=== PATIENT | male | born 1990 | race Caucasian/White ===

== ENCOUNTER 2017-12-06 16:56 | Observation (INO) | payer MEDICAID, SELFPAY ==
[2017-12-06 16:57] VITALS: BP 144/80; PULSE 104; RESP 15; TEMP 36.6; O2SAT 99; BMI 34.0
--- NOTE | 2017-12-06 17:11 | ED.VISSUMM ---
- ER Visit Summary Date of Service: 12/06/17 Chief Complaint: Withdrawal History of Present Illness: The patient is a 27 M who was reportedly at [facility] for meth addiction. His last use was yesterday morning and he did treatment yesterday. Patient states he started to get shaky last night. Today's complaining of body aches, nausea, and feels very shaky. Patient states that he has not been given any medication for withdrawal. Nursing staff states the rehab center told him he needed help getting through this stage of the withdrawal and they were taken back at the facility. Physical Examination: Vital signs significant for heart rate of 104, otherwise unremarkable. Patient is lying in bed. He is a nervous tremor to his arms and hands which is voluntary. Heart is regular rate and rhythm with a heart rate of 96 at the time of my exam. Lung sounds are clear. Abdomen is soft and nontender. Hypoactive bowel sounds are noted throughout. Skin examination reveals no rash. Test Results: CBC and chemistry studies are unremarkable. LFTs are normal. Emergency Department Course and Treatment: Patient was given IV fluids, Toradol, Zofran, and Ativan. On repeat evaluation he is sleeping comfortably. We are now notified that the patient is at pathway through [facility], and they do not have the ability to medicate patients through withdrawal. They state that they will not take the patient back until the Ativan that we gave him here is out of his system. Mother did reportedly call in and talk with the charge nurse stating that patient went through severe kidney failure and required being on a vent when he went through withdrawal a few months ago at [facility]. She did provide the discharge summary from that visit. On my review it appears the patient swallowed a bag full of meth when he was pulled over by police. This ruptured and patient had an acute adrenergic response from the overdose. This required him to be intubated and led to his further symptoms. At this time patient's labs are normal. I spoke with the hospitalist and patient will be admitted for further care. Treatment Plan: [] Disposition: Admit Impression: Withdrawal from meth This note was generated with [employer] dictation software. It may contain incorrect words, spelling, and punctuation that were not noted in review of the chart prior to signing ED Disposition - Plan for ED Patient: Disposition: Acute Care Hospital [facility] Chief Complaint: Substance Abuse
[2017-12-06] MEDS: 0.9% Normal Saline 1,000 ML 1000 ML IV (17:17)
[2017-12-06] MEDS: LORazepam 2 MG/ML Syringe 1 MG IV (17:17)
[2017-12-06] MEDS: Ketorolac 30 MG/ML Syringe IV (17:17)
[2017-12-06] MEDS: Ondansetron 4 MG/2 ML Vial IV (17:17)
[2017-12-06 17:21] LABS: Absolute Lymphocyte Count 2.11 X10^3/ul (0.83-4.51); Absolute Neutrophil Count 5.1 X10^3/uL (2.0-7.7); Basophil# 0.06 X10^3/uL; Basophil% 0.7 % (0-1); Eosinophil# 0.23 X10^3/uL; Eosinophils% 2.8 % (0-5); Hemoglobin 15.7 g/dl (13.0-16.5); Lymphocyte # 2.11 X10^3/ul (4.0); Mean Corp Hgb Conc 34.1 g/gl (32-36); Mean Corpuscular Hgb 28.5 pg (27.0-32.0); Mean Corpuscular Volume 83.5 fL (80-94); Mean Platelet Vol. 9.6 fl (6.2-12.0); Monocyte# 0.62 X10^3/uL; Monocyte% 7.7 % (0-10); Neutrophil # 5.06 X10^3/uL (2.7-7.7); Neutrophil % 62.6 % (47-70); Platelet Count 271 K/mm3 (150-450); RBC Distribution Width CV 14.7 % (11.6-14.6); RBC Distribution Width SD 44.5 fl (35.1-43.9); Red Blood Count 5.51 M/mm3 (4.6-6.2); White Blood Count 8.1 K/mm3 (4.4-11.0)
[2017-12-06 17:27] LABS: POSITIVE COUNT NO; POSITIVE DIFFERENTIAL NO; POSITIVE MORPHOLOGY NO
[2017-12-06 17:29] LABS: Anion Gap 5 (5-15); BUN 14 mg/dL (7-18); BUN/Creat Ratio 16.1 RATIO (10-20); Chloride 105 mmol/L (98-107); Creatinine, Serum 0.87 mg/dL (0.70-1.30); EST Glomerular Filtration Rate 112 mL/min (>60); Est Glom Filt Rate - Afr Amer 136 mL/min (>60); Estimated Creatinine Clearance 148.29 ml/min; Glucose 97 mg/dL (74-106); Sodium Level 139 mmol/L (136-145)
[2017-12-06 18:24] VITALS: BP 147/80; PULSE 85; RESP 18; O2SAT 96
[2017-12-06 18:42] LABS: Bacteria 0 SEEN /hpf (None Seen); Red Blood Cells-Urine 0 SEEN /hpf (0-5); Squamous Epithelial Cells - UA 0 SEEN /hpf (0-5)
[2017-12-06 19:09] LABS: Color, Urine Yellow (Yellow); Glucose, Dipstick Normal (Normal); Ketone-Dipstick Negative (Negative); Leukocyte Esterase-Dipstick Negative /ul (Negative); Nitrite-Dipstick Negative (Negative); Occult Blood-Urine Negative /ul (Negative); Protein-Dipstick Negative (Negative); Specific Gravity, Urine 1.025 (1.002-1.030); Urine Bilirubin Dipstick Negative (Negative); Urine Clarity Clear (Clear); Urine Urobilinogen Normal (Normal)
[2017-12-06 19:12] LABS: AST(SGOT) 14 U/L (15-37); Alanine Aminotransfer ALT/SGPT 24 U/L (16-61); Albumin, Serum 3.7 g/dL (3.2-5.0); Alkaline Phosphatase 60 U/L (45-117); Bilirubin, Direct 0.07 mg/dL (0.00-0.30); Globulin 3.6 g/dL (2.2-4.2); Protein, Total 7.3 g/dL (6.4-8.2)
[2017-12-06 19:14] LABS: Amphetamine Urine VISTA POSITIVE (<1000 ng/mL); Barbiturate Urine VISTA NEGATIVE (< 200 ng/mL); Benzodiazepine Urine VISTA NEGATIVE (< 200 ng/mL); Cocaine Urine VISTA NEGATIVE (< 300 ng/mL); Ecstacy Urine VISTA POSITIVE (< 500 ng/mL); Methadone Urine VISTA NEGATIVE (< 300 ng/mL); PCP Urine VISTA NEGATIVE (< 25 ng/mL); THC Urine VISTA NEGATIVE (< 50 ng/mL); Vista UDS pH Range 5
[2017-12-06 19:46] LABS: Hyaline Cast 0-5 SEEN /lpf (0-5)
[2017-12-06 19:47] LABS: Mucous, Urine 2+ /hpf (<or=2+)
[2017-12-06 19:48] VITALS: BP 147/80; PULSE 77; RESP 16; O2SAT 96
[2017-12-06 19:48] LABS: White Blood Cells 0-5 SEEN /hpf (0-5)
[2017-12-06 19:50] VITALS: BP 147/80; PULSE 77; RESP 16; O2SAT 96
--- NOTE | 2017-12-06 19:51 | PCM.HP.STD ---
Problem List (1) Methamphetamine toxicity Status: Acute (2) History of acute kidney injury Status: Chronic History of Present Illness Date of Admission: 12/06/17 Chief Complaint: Hyperactive, agitation secondary to methamphetamine addiction The patient is a 27 year old M with history of methamphetamine dependence for 1 year who gets drug rehab treatment from [facility] pathway came to ER for body aches, nausea, tremors and shakiness. Patient is sleepy and drowsy but wakes up on verbal command. He denies palpitation, chest pain, shortness of breath, abdominal pain, seizure but he still has tremors and sometimes myoclonus movement. As per her mother is near the bedside, he was intubated and had kidney shutdown in April 2017 secondary to methamphetamine toxicity. He recovered well. Currently, his creatinine is 0.87, BUN 14, anion gap 5 with normal electrolytes. U tox positive for methamphetamine. UA is negative for pyuria, pH 6.0 and specific gravity 1.025 [] Past Medical History Past Medical History (Chronic Problems): Chronic Problems History of acute kidney injury (Chronic) Allergies No Known Allergies Allergy (Verified 12/06/17 17:02) Home Medications: Ambulatory Orders Medication Instructions Recorded NK [NK] 12/06/17 Smoking Status: Current every day smoker Drugs: - - Methamphetamine is smoking and is noting - *Family History Maternal History Items: No pertinent history Review of Systems Constitutional: Denies: Chills, Fever, Weight Change Eyes: Denies: Blurred vision HEENT: Denies: Difficulty Hearing Cardiovascular: Denies: Chest Pain Gastrointestinal: Denies: Abdominal Pain Unable to obtain accurate/complete ROS d/t: Patient is drowsy and lethargic, hyperactive secondary to meth effect VTE Information - Inpt Only VTE Present on Admission: No VTE Mechan Device Prophylaxis: None Reason prophylaxis not ordered:: Procedure Not Indicated - Low risk Patient Problems: Active and Suspected Problems Methamphetamine toxicity (Acute) - Physical Exam General: Oriented x3, Lethargic, - - Sometimes agitation HEENT: Atraumatic, PERRLA, EOMI, Normocephalic Oral: Dry Mucosa Neck: Supple, No JVD, Negative Carotid Bruits Lungs: Clear to auscultation, Normal air movement Cardiovascular: Regular rate, Regular Rhythm, Normal S1, Normal S2, No murmurs Abdomen: Bowel Sounds Present, Soft, Non Tender, Non-Distended Extremities: No edema, Capillary Refill Less than 3 Seconds Skin: No rashes, No breakdown Musculoskeletal: No Tenderness to Palpation of Joints or Extremities Neurological: Cranial nerves II-XII grossly intact Psych/Mental Status: Agitated, Anxious, Restless Vital Signs Temp Pulse Resp BP Pulse Ox 97.8 F 77 16 147/80 H 96 12/06/17 16:57 12/06/17 19:50 12/06/17 19:50 12/06/17 19:50 12/06/17 19:50 Oxygen Delivery Method Room Air Assessment/Plan All Active Problems Methamphetamine toxicity (Acute) The patient is a 27 year old M with history of methamphetamine dependence for 1 year who gets drug rehab treatment from [facility] pathway came to ER for body aches, nausea, tremors and shakiness. Patient is sleepy and drowsy but wakes up on verbal command. He denies palpitation, chest pain, shortness of breath, abdominal pain, seizure but he still has tremors and sometimes myoclonus movement. As per her mother is near the bedside, he was intubated and had kidney shutdown in April 2017 secondary to methamphetamine toxicity. He recovered well. Currently, his creatinine is 0.87, BUN 14, anion gap 5 with normal electrolytes. U tox positive for methamphetamine. UA is negative for pyuria, pH 6.0 and specific gravity 1.025 1. Methamphetamine toxicity: Patient is being admitted on the regular MedSurg floor. IV fluid normal saline. Patient is on a stabilization program as per [facility] protocol. Ativan 1-2 mg as needed for agitation/seizure. Patient and mother denies any other drug use/dependence including opioids, fentanyl, phencyclidine. 2. History of acute kidney injury secondary to methamphetamine use in the recent past: Follow kidney function tomorrow a.m. DVT prophylaxis: Low risk, prophylaxis not indicated This note was generated with [employer] dictation software. Every effort was made to ensure accuracy, however computerized elevator installer apprentice mistakes may persist. Laboratory Results 12/06/17 17:03: WBC 8.1, RBC 5.51, Hgb 15.7, Hct 46.0, MCV 83.5, MCH 28.5, MCHC 34.1, RDW 14.7 H, RDW Differential 44.5 H, Plt Count 271, MPV 9.6, Immature Gran % (Auto) 0.200, Neut % (Auto) 62.6, Lymph % (Auto) 26.0, [place] % (Auto) 7.7, Eos % (Auto) 2.8, Baso % (Auto) 0.7, Absolute Neuts (auto) 5.1, Absolute Lymphs (auto) 2.11, Total Counted Not Reportable 12/06/17 17:03: Sodium 139, Potassium 4.0, Chloride 105, Carbon Dioxide 29.0, Anion Gap 5, BUN 14, Creatinine 0.87, Estim Creat Clear Calc 148.29, Est GFR (MDRD) Af Amer 136, Est GFR (MDRD) Non-Af 112, BUN/Creatinine Ratio 16.1, Glucose 97, Calcium 9.0 12/06/17 17:03: Total Bilirubin 0.20, Direct Bilirubin 0.07, AST 14 L, ALT 24, Alkaline Phosphatase 60, Total Protein 7.3, Albumin 3.7, Globulin 3.6 12/06/17 18:35: Urine Opiates Screen NEGATIVE, Urine Methadone Screen NEGATIVE, Ur Barbiturates Screen NEGATIVE, Ur Phencyclidine Scrn NEGATIVE, Ur Amphetamines Screen POSITIVE H, U Methamphetamin-MDMA POSITIVE H, U Benzodiazepines Scrn NEGATIVE, Urine Cocaine Screen NEGATIVE, U Cannabinoids Screen NEGATIVE, Ur Drug Screen Comment 12/06/17 18:35: Urine Color Yellow, Urine Clarity Clear, Urine pH 6.0, Ur Specific Bypro 1.025, Urine Protein Negative, Urine Glucose (UA) Normal, Urine Ketones Negative, Urine Occult Blood Negative, Urine Nitrite Negative, Urine Bilirubin Negative, Urine Urobilinogen Normal, Ur Leukocyte Esterase Negative, Urine RBC 0 SEEN, Urine WBC 0-5 SEEN, Ur Squamous Epith Cells 0 SEEN, Urine Bacteria 0 SEEN, Hyaline Casts 0-5 SEEN, Urine Mucus 2+ Code Visit Inpatient E&M: 63321 Subs Hosp L2
[2017-12-06 20:00] VITALS: BP 119/69; PULSE 98; RESP 16; TEMP 36.6; O2SAT 98
[2017-12-06 20:04] VITALS: BMI 34.0
[2017-12-06 20:23] VITALS: BP 119/69; PULSE 98; RESP 16; TEMP 36.6
[2017-12-06] MEDS: 0.9% Normal Saline 1,000 ML 150 ML IV (20:28)
[2017-12-06] MEDS: traZODone 50 MG Tablet PO (22:29)
[2017-12-07] VITALS (10 sets, daily range): BP systolic 126–135; BP diastolic 70–85; PULSE 74–90; RESP 16–18; TEMP 35.7–36.6; O2SAT 97–98
[2017-12-07] MEDS: Ibuprofen 600 MG Tablet PO ×2 (00:25→08:49)
[2017-12-07] MEDS: 0.9% Normal Saline 1,000 ML 150 ML IV ×2 (03:34→10:24)
[2017-12-07] MEDS: Ondansetron ODT 4 MG Tablet PO (04:07)
[2017-12-07] MEDS: Acetaminophen 500 MG Tablet PO (04:08)
--- NOTE | 2017-12-07 06:40 | PCM.PN.HOSP ---
Patient Problems: Active and Suspected Problems Methamphetamine toxicity (Acute) Subjective: Patient with no acute events overnight per self and per nursing report. Patient feels improved since initial presentation but still admitting to some mild tremors. Patient confirms that he only uses methamphetamine which he snorts, chews or smokes but has never injected. He states last usage was 48 hours prior. He states is already plugged into the [facility] with intention to return. Patient denies fevers, chills, nausea, emesis, abdominal pain, chest pain or dyspnea. Objective: Physical Examination: General: awake, alert, oriented x 3 and cooperative, seated upright in bed in no apparent distress. Skin: normal color, turgor, no icterus, cyanosis. HEENT: AT/NC, EOMI, PERRLA, improved MMM. Lungs: CTA bilaterally, moderate effort, mild decrease BL bases, no rales, ronchi or wheezing. Heart: Regular rate and rhythm; no gallop, rub audible. Abdomen: soft, obese, NTTP, ND, normal BS, no HSM. Extremities: no cyanosis, clubbing, or edema. Neurological: patient awake, alert, oriented x 3; cognitive function intact; pupils equally reactive to light and accomodation; cranial nerves II-XII grossly normal, moving all 4 extremities, no focal deficits, strength mildly globally decreased. Psychiatric: affect appears normal, calm, no evidence agitation, no acute evidence of depressive or anxiety feelings. Vitals/I&O's: Vital Signs Temp Pulse Resp BP Pulse Ox 96.2 F L 74 16 132/70 H 97 12/07/17 04:13 12/07/17 04:13 12/07/17 04:13 12/07/17 04:13 12/07/17 04:12 Oxygen Delivery Method Room Air Weight: 264 lb 8.875 oz Body Mass Index (BMI) 34.0 Intake and Output for Last 24 Hours 12/05/17 12/06/17 12/07/17 23:59 23:59 23:59 Intake Total 1363 / 1363 Balance 1363 / 1363 Laboratory Results 12/06/17 20:17: Troponin I 0.018 12/06/17 20:17: Ethyl Alcohol 6.0 Current Medications Acetaminophen (Tylenol) 500 mg PO Q4H PRN PRN PRN Reason: Temp > 100.4 F Last Admin: 12/07/17 04:08 Dose: 500 mg Al Hydroxide/Mg Hydroxide (Mylanta Ii) 30 ml PO Q6H PRN PRN PRN Reason: dyspesia Bisacodyl (Dulcolax) 10 mg RECTAL DAILY PRN PRN Reason: Constipation Sodium Chloride () 1,000 mls @ 150 mls/hr IV .Q6H40M [facility] Last Admin: 12/07/17 03:34 Dose: 150 mls/hr Ibuprofen (Motrin) 600 mg PO Q8H PRN PRN PRN Reason: Mild-Moderate Pain (1-5/10) Last Admin: 12/07/17 00:25 Dose: 600 mg Loperamide HCl (Imodium) 2 - 4 mg PO UD PRN PRN Reason: LOOSE STOOLS Lorazepam (Ativan) 1 - 2 mg IV Q4H PRN PRN PRN Reason: agitation/seizure Nicotine (Nicoderm Cq (Pbkc)) 21 mg TRANSDERM. DAILY [facility] Ondansetron HCl (Zofran Odt) 4 mg PO Q6H PRN PRN PRN Reason: NAUSEA Last Admin: 12/07/17 04:07 Dose: 4 mg Senna (Senokot) 1 tablet PO QHS PRN PRN Reason: Constipation Sodium Chloride () 5 - 30 ml IV UD PRN PRN Reason: SALINE FLUSH Trazodone HCl (Desyrel) 50 mg PO QHS [facility] Last Admin: 12/06/17 22:29 Dose: 50 mg Medical Necessity - Tobacco Use Smoking Status: Current every day smoker Tobacco Use: Cigarettes Assessment/Plan All Active Problems Methamphetamine toxicity (Acute) The patient is a 27 y/o M w/ PMHx: Polysubstance Abuse, Tobacco use who presents to the [facility] ED on 12/06/17 with history of methamphetamine abuse x 1 years w/ ongoing drug treatment per [facility] with onset nausea, emesis, tremors, sedation secondary to methamphetamine usage. (1) Acute Methamphetamine Intoxication: Admitted to ID, routine labs obtained, UDS w/ + meth/amp screen, maintained on IVFs, patient has remained seizure free, no evidence TADEO on hydration, not hyperthermic, not tachycardic, airway appropriate, PRN ativan seizures and agitation. Given patient clinically improved will plan [facility] assistance for transition to next level of rehabilitation care. (2) Tobacco Abuse: Encouraged cessation, inpatient consultation per RT, NR if desired. (3) History of TADEO: Noted TADEO w/ OD prior, admission BUN/Cr 14/0.87, appropriate, trend as needed. (4) DVT prophylaxis: SCDs, low risk, ambulation.
--- NOTE | 2017-12-07 08:07 | PCM.DC ---
- Discharge Diagnoses Current Active Problems: Current Active and Chronic Problems (1) Methamphetamine Abuse with Acute Intoxication (2) Tobacco Abuse (3) History of TADEO w/ prior Acute Intoxication Methamphetamine (4) Obesity You will use the following diet at home:: No restrictions Your food should be the consistency of: Regular Your liquids should be the consistency of: Regular/Thin Discharge Activity: Return to Normal Activity Weight Bearing Status: Weight bearing as tolerated Call your doctor if you observe: Fever of 101 or Higher, Inability to urinate, Inability to have a bowel movement, Shortness of breath, Dizziness, Fainting spells, Chest pain, Uncontrolled pain Instructions: Understanding Methamphetamine Abuse and Addiction, ED Drug Abuse General Additional Instructions: Please continue to follow with [facility] program. Allergies/Adverse Reactions: Allergies No Known Allergies Allergy (Verified 12/06/17 17:02) Medications to take at Discharge NK [NK] 12/06/17 Primary Care Physician: Care Physician,No Primary [Primary Care Provider] - Please follow up with your Primary Care Physician in: Please establish and follow with primary care, recommend within 1-2 week Test Results: Test results from this visit will be discussed in further detail at your follow-up appointment, if applicable. Please Follow Up With: [facility] When: Please continue with your program plan upon discharge. Proposed Discharge Date: 12/07/17
--- NOTE | 2017-12-07 08:17 | PCM.DC.SUM ---
Discharge Date and Diagnosis - Problem List Patient Problems: Active and Suspected Problems Methamphetamine toxicity (Acute) Date of Admission: 12/06/17 Date of Discharge: 12/07/17 - Primary Discharge Diagnosis Active and Suspected Problems (1) Methamphetamine Abuse with Acute Intoxication (2) Tobacco Abuse (3) History of TADEO w/ prior Acute Intoxication Methamphetamine (4) Obesity - Secondary Discharge Diagnosis Chronic Problems History of acute kidney injury (Chronic) Hospital Course and Treatment Operations: None Procedures: None Summary of Care Provided: The patient is a 27 y/o M w/ PMHx: Polysubstance Abuse (Methamphetamine currently, no IVDA history, last usage ~ 48 hours prior), Tobacco use who presented to the [facility] ED on 12/06/17 with history of methamphetamine abuse x 1 years w/ ongoing drug treatment per [facility] with onset nausea, emesis, tremors, sedation secondary to methamphetamine usage. Admitted to [facility], routine labs obtained, UDS w/ + meth/amp screen, maintained on IVFs, patient has remained seizure free, no evidence TADEO on hydration, not hyperthermic, not tachycardic, airway appropriate, PRN ativan seizures and agitation. Given patient clinically improved [facility] assistance requested prior to discharge for transition to next level of rehabilitation care. Encouraged tobacco cessation, inpatient consultation per RT, NR if desired. Patient w/ History of TADEO w/ OD prior, admission BUN/Cr 14/0.87, appropriate with hydration administered. Patient improved, discharged in stable condition with recommendation to continue program per [facility] discretion versus [facility]. Discharge Activity: Return to Normal Activity Weight Bearing Status: Weight bearing as tolerated Call your doctor if you observe: Fever of 101 or Higher, Inability to urinate, Inability to have a bowel movement, Shortness of breath, Dizziness, Fainting spells, Chest pain, Uncontrolled pain Home Medications: Medications to take at Discharge NK [NK] 12/06/17 Primary Care Physician: Care Physician,No Primary [Primary Care Provider] - Please follow up with your Primary Care Physician in: Please establish and follow with primary care, recommend within 1-2 week Please Follow Up With: [facility] When: Please continue with your program plan upon discharge. Patient Instructions: Understanding Methamphetamine Abuse and Addiction, ED Drug Abuse General Disposition: Home Minutes spent on discharge:: 20 Patient Condition:: Fair Medical Necessity - Tobacco Use Smoking Status: Current every day smoker Tobacco Use: Cigarettes Meaningful Use Info Meaningful Use Diagnoses (Choose all that apply): None applicable Code Visit OBSV E&M: 64987 Observation care discharge
--- NOTE | 2017-12-07 10:51 | CASEMGMT ---
Addendum entered by Paz Apodaca 12/07/17 14:40: Shayla from [facility] did call this SW back and confirmed is okay to give pt the number to call and self refer. SHARLA Monahan, CONDITIONER TUMBLER Original Note: Addendum entered by Paz Apodaca 12/07/17 14:24: SW spoke w/pt, he spoke w/his mother, he does not know what he will do, his mother is on her way here, will be here in about an hour. YOLANDA did also give pt the information for [facility] should he decide to pursue this. YOLANDA called Shanell at [facility] and let her know pt has not decided what he will do, Shanell asked to be called w/pt's decision. SW will give Shanell's number to the nurse to call, as this SW may be gone by the time that pt's mother arrives. YOLANDA also let Shanell know pt has information for [facility] should he decide to pursue detox or residential treatment. SW called Shayla at [facility] also and let her know pt may be calling her. Pt will either return to [facility] or go home w/his mother. RN will call Shanell at [facility] to let her know pt's decision. No further social service needs at this time. SHARLA Monahan, CONDITIONER TUMBLER Original Note: Addendum entered by Paz Apodaca 12/07/17 13:23: Physician states pt needs to be discharged today. SW spoke w/pt in room, is more awake now. SW inquired w/pt what he is planning to do, SW is not certain if he can go back to [facility] or not. Pt would prefer to return home and go to [facility] in a couple of days. SW asked pt about going to [facility] also, pt states would have no way to get there. Pt signed a release so SW can call [facility]. SW called [facility], spoke w/pt's ARNOLDO Reece. She states they can take pt back as long as he is not on Ativan and does not have a script for any meds such as Ativan. YOLANDA explained pt did get one IV dose at 11am. Shanell states pt would be able to come back later this afternoon. YOLANDA inquired if pt were to go home, can he come back from home. Shanell states no, pt cannot come back to [facility] if he goes home. SW spoke w/pt in the room. SW explained that [facility] will take him back from the hospital, but if he goes home he cannot return. Pt asked if he can go back on Ativan, SW explained no. SW asked pt again about [facility], that perhaps pt can go to [facility] and go to [facility] from there, if he could find a ride. Pt states he needs to call his mother to speak w/her. SW will check back w/pt shortly to see what he plans to do. SHARLA Monahan, CONDITIONER TUMBLER Original Note: Addendum entered by Paz Apodaca 12/07/17 12:17: Shayla states [facility] may be able to take pt, but pt would need to be there by 3pm. SW is not able to speak w/pt about this option at this time. When pt is more awake SW will speak w/him. SW did let physician know that at this time, SW does not have a place for pt to go once he is discharged, and pt has not been able to speak w/SW about options. SW will attempt to speak w/pt again later this afternoon. SHARLA Monahan, CONDITIONER TUMBLER Original Note: Addendum entered by Paz Apodaca 12/07/17 11:49: Shayla from [facility] called multiple places, no facility will take pt for withdrawal from methamphetamines, as it is not covered by insurance. As per the ED note, pt cannot go back to [facility] until the Ativan is out of his system. Pt did get Ativan IV today. SW attempted to speak w/pt, he is asleep. SW will try to speak w/pt again shortly. SHARLA Monahan, CONDITIONER TUMBLER Original Note: Shayla from [facility] is following up w/pt regarding options at discharge. Pt had been at [facility] prior to this hospitalization. SHARLA Monahan, CONDITIONER TUMBLER
[2017-12-07] MEDS: LORazepam 2 MG/ML Syringe IV (10:54)
[2017-12-07] MEDS: 0.9% NaCl Peripheral Flush Adult/Peds IV (10:55)
--- NOTE | 2017-12-07 11:01 | NURSING ---
pt resting in bed, restless with legs and body. states 'i feel very hot, sweaty, and very restless. pt states that he smoked meth. asked if pt has been in medical stabilization before. reinforced withdrawal side effects. pt sharing further insight upon nursing asking if he has taken any other illicit drugs. pt states there may have been some MDMA in in the pot nurse requested pt to help clarify- pt states for meth, you can smoke it, snort it, eat it and smack it. i have never smacked it- that is where you inject it. inquired as to if pt feels smoking his meth if there were any other drugs in it- pt states there may have been some MDMA. i haven't knowingly taken that before. it could have been mixed in with something and i didn't know it. it could have been left over in the pot from when i am smoking it. inquired as to if smoking pot is washed prior to use- pt states no it is not, so i don't know what could be left over in it. Livier RN at bedside during this conversation as well. pt at times will maintain eye contact, at other times, looks off towards side and closes eyes or has eyes half open, pt states i am not faking this, this really sucks. updated pt on symptoms of drug withdrawal and nurse monitoring. Primary RN to notify md of above conversation and pt symptoms.
--- NOTE | 2017-12-07 11:14 | NURSING ---
DR MCCORMACK NOTIFIED OF PT AWAKING RESTLESS, FEELING IF ROOM SPINNING, DIAPHORETIC. VSS. NEW ORDER RECEIVED.
[2017-12-07] MEDS: Meclizine 12.5 MG Tablet PO (14:03)
--- NOTE | 2017-12-07 15:39 | NURSING ---
[id number] security called and said nurse requested they come to the pt room. pt pacing about in his room, yelling at times, making threatening comments to female who is at beside- his mother. argumentative with her. pt asking to leave the floor and go smoke. pacing about in his room continues, throwing his clothing on the bed and using profanity. pt with no facial expression at times when he is pacing about, fists clenched at times. security to room. security walks pt mother down to elevated, discharge instructions given to pt. pt removed his nicotine patch. states he has all of his belongings, said nurse and primary nurse then escort pt down hallway to elevator- night guard at elevator and escorts pt to main entrance.
== END 2017-12-07 15:05 | disposition home or self-care (01) ==
LOC: ED 19:08 → MS2 19:22
PROVIDERS: Admitting Provider Internal Medicine; Emergency Provider Emergency Medicine; Visit Provider Family Medicine
DX: F15.229 Other stimulant dependence with intoxication, unspecified (principal); F17.210 Nicotine dependence, cigarettes, uncomplicated; E66.9 Obesity, unspecified; Z68.34 Body mass index [BMI] 34.0-34.9, adult; Z71.3 Dietary counseling and surveillance
CPT/HCPCS: 36415; 80048; 80053; 80076; 80307; 80320; 81001; 84484; 85025; 93005; 96361; 96372; 96374; 96375; 99218; 99282; 99285; J7030; A4216; G0378; G0480; J2405

== ENCOUNTER 2017-12-07 16:59 | Emergency (ER) | payer MEDICAID, SELFPAY ==
[2017-12-07 17:00] VITALS: BP 150/100; PULSE 96; RESP 20; TEMP 36.6; O2SAT 98; BMI 28.8
[2017-12-07] MEDS: hydrOXYzine 50 MG/ML Vial 25 MG IM (17:41)
[2017-12-07 18:10] LABS: Absolute Lymphocyte Count 1.91 X10^3/ul (0.83-4.51); Absolute Neutrophil Count 5.8 X10^3/uL (2.0-7.7); Basophil# 0.04 X10^3/uL; Basophil% 0.5 % (0-1); Eosinophil# 0.19 X10^3/uL; Eosinophils% 2.2 % (0-5); Hematocrit 43.6 % (40-54); Hemoglobin 14.4 g/dl (13.0-16.5); Lymphocyte # 1.91 X10^3/ul (4.0); Lymphocyte % 22.4 % (19-41); Mean Corpuscular Hgb 28.2 pg (27.0-32.0); Mean Corpuscular Volume 85.3 fL (80-94); Mean Platelet Vol. 9.4 fl (6.2-12.0); Monocyte# 0.63 X10^3/uL; Monocyte% 7.4 % (0-10); Neutrophil # 5.76 X10^3/uL (2.7-7.7); Neutrophil % 67.4 % (47-70); Platelet Count 241 K/mm3 (150-450); RBC Distribution Width CV 14.6 % (11.6-14.6); RBC Distribution Width SD 45.9 fl (35.1-43.9); Red Blood Count 5.11 M/mm3 (4.6-6.2); White Blood Count 8.5 K/mm3 (4.4-11.0)
[2017-12-07 18:12] LABS: POSITIVE COUNT NO; POSITIVE DIFFERENTIAL NO; POSITIVE MORPHOLOGY NO
[2017-12-07 18:26] LABS: AST(SGOT) 12 U/L (15-37); Alanine Aminotransfer ALT/SGPT 20 U/L (16-61); Albumin, Serum 3.2 g/dL (3.2-5.0); Alkaline Phosphatase 54 U/L (45-117); Anion Gap 7 (5-15); BUN 8 mg/dL (7-18); BUN/Creat Ratio 10.2 RATIO (10-20); Calcium,Total 8.1 mg/dL (8.5-10.1); Chloride 109 mmol/L (98-107); Creatinine, Serum 0.79 mg/dL (0.70-1.30); EST Glomerular Filtration Rate 126 mL/min (>60); Est Glom Filt Rate - Afr Amer 152 mL/min (>60); Globulin 3.2 g/dL (2.2-4.2); Glucose 106 mg/dL (74-106); Potassium 3.6 mmol/L (3.5-5.1); Protein, Total 6.4 g/dL (6.4-8.2); Sodium Level 142 mmol/L (136-145)
--- NOTE | 2017-12-07 19:20 | ED.RN ---
ARIANNE CALLED FROM [facility]. SHE IS COMING TO SEE PT SOON.
[2017-12-07 20:35] LABS: Amphetamine Urine VISTA POSITIVE (<1000 ng/mL); Barbiturate Urine VISTA NEGATIVE (< 200 ng/mL); Benzodiazepine Urine VISTA NEGATIVE (< 200 ng/mL); Cocaine Urine VISTA NEGATIVE (< 300 ng/mL); Ecstacy Urine VISTA NEGATIVE (< 500 ng/mL); Methadone Urine VISTA NEGATIVE (< 300 ng/mL); PCP Urine VISTA NEGATIVE (< 25 ng/mL); THC Urine VISTA NEGATIVE (< 50 ng/mL); Vista UDS pH Range 5
--- NOTE | 2017-12-07 23:04 | ED.VISSUMM ---
- ER Visit Summary Date of Service: 12/07/17 Chief Complaint: Anxiety History of Present Illness: The patient is a 27 M who presents with anxiety that became worse yesterday. Patient was seen here yesterday and was admitted to the hospital overnight. Patient states he has been withdrawing from methamphetamine and ecstasy. Patient states he has been having some shaking with this withdrawal. Patient was given a dose of Ativan yesterday in the emergency department and early this morning while in the hospital. Patient is unable to go back to his outpatient rehab with benzodiazepines in his system. Patient denies any further use of methamphetamines or MDMA. Patient states he was told to come back to the emergency department for further evaluation by crisis counselor and possible hospitalization to [facility] in [place]. Physical Examination: Vital signs are stable except for mildly elevated blood pressure 150/100. Patient is afebrile. Patient is in no acute distress. Oral mucosa is pink and moist. Neck is supple. There is no JVD noted. Heart was regular rate and rhythm. Lungs are clear and equal bilaterally. Abdomen is soft. Bowel sounds are normal. Cranial nerves II through XII are intact. There are no focal motor or sensory deficits noted. Patient does have a anxious mood and affect. Patient denies any suicidal or homicidal ideations. Test Results: Medical screening labs were obtained were within normal limits. Emergency Department Course and Treatment: Crisis counselor was in to evaluate the patient. Patient is not having any suicidal or homicidal ideations. Patient is not having visual or auditory hallucinations. Path[facility] counselor came into talk with the patient and told him that he can go back to the [facility] now that the Ativan is out of his system. She stated patient will have to follow all the rules at the [facility] or he will be discharged from there. Patient understood and was agreeable with the plan. All questions were answered. Disposition: Discharged with pathway counselor Impression: Anxiety, methamphetamine abuse This note was generated with [employer] dictation software. It may contain incorrect words, spelling, and punctuation that were not noted in review of the chart prior to signing ED Disposition - Plan for ED Patient: Disposition: Home or Assisted Living Chief Complaint: Anxiety Diagnosis: Anxiety, Methamphetamine abuse Instructions: ED Drug Abuse General Referrals: Care Physician,No Primary [Primary Care Provider] -
--- NOTE | 2017-12-07 23:09 | ED.RN ---
discussed with mother and step father about plan of care at this time. Patient does not meet criteria for admission for meth withdrawal. There currently is not a program that will take meth withdrawal. [facility] is [facility]. Crisis will attempt to make contact with [facility] to see if they are willing to accept the patient back into the program.
[2017-12-07 23:36] VITALS: RESP 14
--- NOTE | 2017-12-07 23:57 | ED.VISSUMM ---
- ER Visit Summary Date of Service: 12/07/17 Chief Complaint: [] History of Present Illness: The patient is a 27 M [] Physical Examination: [] Test Results: [] Emergency Department Course and Treatment: [] Treatment Plan: [] Disposition: [] Impression: [] This note was generated with [employer] dictation software. It may contain incorrect words, spelling, and punctuation that were not noted in review of the chart prior to signing ED Disposition - Plan for ED Patient: Disposition: Home or Assisted Living Chief Complaint: Anxiety Diagnosis: Anxiety, Methamphetamine abuse Instructions: ED Drug Abuse General Referrals: Care Physician,No Primary [Primary Care Provider] -
[2017-12-08 00:05] VITALS: PULSE 86; RESP 16; O2SAT 98
== END 2017-12-08 00:05 | disposition home or self-care (01) ==
PROVIDERS: Emergency Provider Emergency Medicine
DX: F41.9 Anxiety disorder, unspecified (principal); F15.10 Other stimulant abuse, uncomplicated
CPT/HCPCS: 80053; 80307; 80320; 85025; A4216; G0480

== ENCOUNTER 2018-07-18 12:12 | Emergency (ER) | payer MEDICAID, SELFPAY ==
[2018-07-18 12:13] VITALS: BP 145/86; PULSE 104; RESP 18; TEMP 37.1; O2SAT 98; BMI 31.4
--- NOTE | 2018-07-18 12:22 | CT_ITS ---
STUDY: CT ABDOMEN AND PELVIS WITHOUT CONTRAST REASON FOR EXAM: Male, 27 years old. Bilateral flank pain for 3 days. Decreased urination. History of appendectomy. RADIATION DOSAGE (If Supplied By Facility): CTDIvol = ( 14.80 ) mGy, DLP = ( 733.45 ) mGycm TECHNIQUE: Transaxial images were obtained from the dome of the diaphragm to the symphysis pubis without oral contrast, and without intravenous contrast. Sagittal and coronal images were reconstructed. Individualized dose optimization techniques were used for this CT. COMPARISON: None. FINDINGS: The visualized lung bases are unremarkable. The visualized portions of the heart are within normal limits. Normal liver. Normal gallbladder and extrahepatic biliary system. Normal spleen. Normal pancreas. Normal bilateral adrenal glands. Normal right kidney. Normal left kidney. Normal visualized ureters. Normal visualized stomach. Normal small intestine. Increased colonic feces without obvious mass or obstruction. There are surgical clips in the region of the appendix consistent with a prior appendectomy. Normal abdominal aorta. Normal inferior vena cava. Normal retroperitoneum. Normal urinary bladder. Normal prostate. There is no pelvic lymphadenopathy. No free air or free fluid is seen within the peritoneal cavity. Normal abdominal wall. Normal osseous structures. CT/Abdomen/Pelvis without Cont IMPRESSION: 1. No visualized renal, ureteral or urinary bladder abnormality. 2. Increased colonic feces without evidence of obstruction. 3. No other evidence for abdominal or pelvic abnormality. Electronically Signed: Josh Freeman DO at 13:46 EDT Tel [phone], Service support ,
--- NOTE | 2018-07-18 12:25 | ED.DCSUM_ITS ---
- ER Visit Summary Date of Service: 07/18/18 Chief Complaint: Low back pain History of Present Illness: The patient is a 27 M presents to the emergency department low back pain. Patient has a history of methamphetamine abuse. He states that he smokes frequently. He denies ever injecting. He was actually just in rehab and got discharged today after a 3-day stay for medical stabilization. He states that since coming off, he had increasing pain in his low back difficulty urinating. He states that he just feels uncomfortable. The patient does have history of prior overdose and had to be intubated and sedated in the ICU. He had significant kidney injury but never had to be on dialysis. His mother states that from time to time, he will get swelling in his legs. He denies chest pain or trouble breathing. He denies any fevers or chills. Physical Examination: Vital signs reviewed General: Well-nourished, well-developed Head: Normocephalic, atraumatic Eyes: Pupils equal and reactive, extraocular muscles intact Neck, supple, no lymphadenopathy Heart: Regular rate and rhythm Respiratory: No distress, clear bilaterally Abdomen: Soft, nontender, nondistended, no peritoneal signs Back: Tenderness in bilateral lower lumbar area, no bony tenderness, no step-off Extremities: Nontender, no edema, no cords Skin: Normal color no rash Neuro: Alert and oriented, no focal or lateralizing deficits Test Results: [] Emergency Department Course and Treatment: The patient's pain does seem most muscular. He has no red flag symptoms. He states that he never injects his medications. He only smokes. Fluids and Ativan. He had total resolution of his pain. Screening labs are obtained were unremarkable. His creatinine is normal. His urine does show significant white and leuks, but there is no bacteria. Culture was added. I am going to treat the patient for a mild pyelonephritis given his symptoms. His labs are otherwise unremarkable. His CK is normal. The family was concerned that he was going to need a longer stay for his rehab. Fortunately, we do not do methamphetamine inpatient detox here and he is [place] gone through medical detox. We had made attempt to get him placed at an inpatient facility, but he is on the waiting list. The patient will be discharged and will follow-up for his outpatient admission as scheduled. Treatment Plan: [] Disposition: Discharge Impression: 1. Pyelonephritis This note was generated with [employer] dictation software. It may contain incorrect words, spelling, and punctuation that were not noted in review of the chart prior to signing ED Disposition - Plan for ED Patient: Instructions: ED UTI Pyelonephritis Male Prescriptions: Hydroxyzine Pamoate [Vistaril] 50 mg PO 4X/DAY PRN PRN #30 cap PRN Reason: Anxiety Naproxen [Naprosyn] 500 mg PO BID PRN #20 tab Smz/Tmp Ds [Bactrim Ds] 1 tab PO BID #14 tab Referrals: Rahul Martinez MD [STAFF PHYSICIAN] -
[2018-07-18 12:35] LABS: Bacteria 0 SEEN /hpf (None Seen); Mucous, Urine 0 SEEN /hpf (<or=2+); Red Blood Cells-Urine 0 SEEN /hpf (0-5); Squamous Epithelial Cells - UA 0 SEEN /hpf (0-5)
[2018-07-18 12:40] LABS: Color, Urine Yellow (Yellow); Glucose, Dipstick Normal (Normal); Ketone-Dipstick Negative (Negative); Leukocyte Esterase-Dipstick 500 /ul (Negative); Nitrite-Dipstick Negative (Negative); Occult Blood-Urine Negative /ul (Negative); Protein-Dipstick Negative (Negative); Specific Gravity, Urine 1.015 (1.002-1.030); Urine Bilirubin Dipstick Negative (Negative); Urine Clarity Clear (Clear); Urine Urobilinogen Normal (Normal)
[2018-07-18] MEDS: Ondansetron 4 MG/2 ML Vial IV (12:44)
[2018-07-18] MEDS: 0.9% Normal Saline 1,000 ML 250 ML IV (12:44)
[2018-07-18] MEDS: LORazepam 2 MG/ML Syringe 1 MG IV (12:44)
[2018-07-18 12:45] LABS: White Blood Cells 10-25 SEEN /hpf (0-5)
[2018-07-18 12:59] LABS: Absolute Lymphocyte Count 1.91 X10^3/ul (0.83-4.51); Absolute Neutrophil Count 5.4 X10^3/uL (2.0-7.7); Basophil# 0.02 X10^3/uL; Basophil% 0.2 % (0-1); Eosinophil# 0.14 X10^3/uL; Eosinophils% 1.7 % (0-5); Hematocrit 47.6 % (40-54); Hemoglobin 15.8 g/dl (13.0-16.5); Lymphocyte # 1.91 X10^3/ul (4.0); Lymphocyte % 23.7 % (19-41); Mean Corp Hgb Conc 33.2 g/gl (32-36); Mean Corpuscular Hgb 28.1 pg (27.0-32.0); Mean Corpuscular Volume 84.7 fL (80-94); Mean Platelet Vol. 9.3 fl (6.2-12.0); Monocyte% 7.5 % (0-10); Neutrophil # 5.36 X10^3/uL (2.7-7.7); Neutrophil % 66.7 % (47-70); Platelet Count 265 K/mm3 (150-450); RBC Distribution Width CV 14.1 % (11.6-14.6); RBC Distribution Width SD 43.8 fl (35.1-43.9); Red Blood Count 5.62 M/mm3 (4.6-6.2); White Blood Count 8.1 K/mm3 (4.4-11.0)
[2018-07-18 13:00] LABS: POSITIVE COUNT NO; POSITIVE DIFFERENTIAL NO; POSITIVE MORPHOLOGY NO
[2018-07-18 13:09] LABS: Anion Gap 3 (5-15); BUN 10 mg/dL (7-18); BUN/Creat Ratio 10.1 RATIO (10-20); Calcium,Total 8.6 mg/dL (8.5-10.1); Chloride 103 mmol/L (98-107); Creatinine, Serum 0.99 mg/dL (0.70-1.30); EST Glomerular Filtration Rate 96 mL/min (>60); Est Glom Filt Rate - Afr Amer 116 mL/min (>60); Estimated Creatinine Clearance 130.31 ml/min; Glucose 96 mg/dL (74-106); Sodium Level 138 mmol/L (136-145)
[2018-07-18 13:14] LABS: CPK Total, Creatine Kinase 108 U/L (39-308)
--- NOTE | 2018-07-18 14:09 | CM.ED ---
Social Work Note Referral from Dr. Morris as pt's parents are asking for additional resources for inpatient treatment. Introduced self and role to pt who is presently in room alone. Pt states that he was discharged from detox today for medical evaluation. Pt is interested in inpatient treatment and states he would be willing to talk to the pt navigator through [facility]. [facility] who states that since the pt was recently discharged from detox she would recommend reaching out to the coordinator of residential programs, Ann Quispe. Left vm for Ann requesting a return phone call. Ann called back and said they have a waiting list and provided a number for the pt to contact and be placed on if he were still interested. Placed call to [facility] in [place] as pt resides there and they only treat women. Provided number for [facility] [phone] who also does not have availability. Return to pt's room and meet with parents as well. Parents state that he is on a waiting list for a facility in [place] and it will be 2-3 days and he was just released from detox this morning. Inquire about him returning to their detox and they state that they discharged him successfully and do not think they would take him back. Mother inquires about [facility]. Explain that medically we have no reason to keep him and if he completed detox successfully there was not a good likelihood that a detox treatment program will accept him. Also explain that our detox program assist with alcohol and opiate detox, not methamphetamine. Offer to contact [facility] and parents agreeable. Placed call and spoke with Penny who will not release information as she does not have a release. Recommends that the pt's parents contact her to discuss options. Relay their concerns. Updated parents who step out of pt's room to contact [facility]. SW to continue to follow and assist with services. Kimberly Ashby, RECREATIONAL THERAPY TECHNICIAN, [place]
--- NOTE | 2018-07-18 14:47 | CM.ED ---
Social Work Note Face to face with pt and pt's parents. According to parents they spoke with Leslie and she told them that the pt did not require detox services and they would not be able to accept back. Pt is on a waiting list for their inpatient rehab and it will be 3-5 days. Parents are concerned about taking pt home. Discuss options of getting linked with an IOP program throughout the day even and mother states the pt will not do this. At this time pt will need to wait until an opening becomes available in inpatient rehab in [place]. PLAN: Discharge with support of family. Inpatient rehabilitation in 3-5 days pending opening. Kimberly Ashby, CIRCUIT MANAGER, [place]
[2018-07-18 15:38] VITALS: BP 134/88; PULSE 84; RESP 17
== END 2018-07-18 15:39 | disposition home or self-care (01) ==
PROVIDERS: Emergency Provider Emergency Medicine
DX: N12 Tubulo-interstitial nephritis, not specified as acute or chronic (principal); Z72.0 Tobacco use; F15.10 Other stimulant abuse, uncomplicated
CPT/HCPCS: 74176; 80048; 81001; 82550; 85025; 87086; 96361; 96374; 96375; 99283; J7030; J2405

== ENCOUNTER 2021-07-06 18:13 | Emergency (ER) | payer MEDICAID, SELFPAY ==
[2021-07-06 18:15] VITALS: BP 165/93; PULSE 112; RESP 17; TEMP 36.4; O2SAT 98; BMI 34.9
--- NOTE | 2021-07-06 19:50 | EX.ED.DYSGE1 ---
HPI History of Present Illness Chief Complaint: Cellulitis Informant: patient Onset/Context/Timing Onset: Days (3) Context: Gradual Onset Timing: Continuous Quality: Sore/painful Location: Left miranda/lower leg Current Severity: Severe Maximum Severity: Severe Worsened by: Palpation, walking Relieved by: Rest and leaving it alone Associated Symptoms Associated Symptoms: Redness. No systemic symptoms or fevers. No discharge. Narrative Narrative: Patient states spontaneous onset of a sore that has gotten more red and painful for the last 3 days on his left leg. No injury. No history of MRSA abscesses that he knows of. It is scabbed but he states he has not picked at it and it has not drained anything and has no idea how it got scabbed. He has an arbitrary line drawn around this area including some other tissues. [facility] Medical History ADHD Chronic headaches Drug abuse Hip fracture History of respiratory failure Home Medications cephalexin 500 mg PO Q6 #40 capsule 07/06/21 [Rx Last Taken Unknown] naproxen 500 mg PO BID PRN #14 tab 07/06/21 [Rx Last Taken Unknown] Allergy/AdvReac Type Severity Reaction Status Date / Time No Known Allergies Allergy Verified 07/06/21 18:14 Family History (Updated 12/16/17 @ 10:34 by Victorina Montano) Mother Hypertension Anxiety Surgical History History of appendectomy History of tonsillectomy Social History Smoking Status: Current every day smoker tobacco type: cigarettes alcohol intake: never substance use type: does not use what type of physical activity do you participate in: weight training frequency: 3-4 times per week ROS ROS ED Constitutional Constitutional ED: Denies chills or fever(s) Musculoskeletal Musculoskeletal: Reports extremity pain; Denies neck pain Integumentary Reports as per HPI and wounds; Denies Abrasions or rash Neurologic Neurologic: Denies paresthesias or weakness EXAM Physical Exam Const Vital Signs: 07/06/21 18:15 Temperature 97.6 F L Temperature Source Temporal Pulse Rate 112 H Respiratory Rate 17 Blood Pressure 165/93 H Blood Pressure Mean 117 Pulse Ox 98 Oxygen Delivery Method Room Air Positive well nourished and well developed General Appearance ED: well developed and NAD Neck full ROM and supple Back/Spine normal ROM and normal to inspection Extremity Extremity Narrative: Very tender at the affected area left mid miranda. Patient voluntarily guards and will not allow me to palpate it to detect if there is an abscess or not but it does not appear so. It is not swollen. There is a approximately 1.5 cm in diameter area of intense erythema/induration with a scab or 2 in the middle that are small. There is no apparent difference between the color of the tissue within the line he has drawn and that outside of it. He has nontender hyperemia throughout most of both of his legs. There is no lymphangitis. Neuro oriented x3, no focal motor deficits and no sensory deficits noted Sensorium / Orientation: alert Psych mental status grossly normal and thought process normal Skin Skin Narrative: See above. Small wound that is consistent with a small area of cellulitis/erysipelas left mid miranda. No joint involvement. No abscess. MDM MDM MDM Narrative Medical decision making narrative: With 3 days of no abscess is more consistent with strep so we will treat him with cephalexin and a single dose of tramadol here, has history of illicit drug use so I am not prescribing him that, but will prescribe him anti-inflammatories. Discharge Plan Triage Chief Complaint: Cellulitis ED Provider: Jaylen Lei Dx/Rx/DC Orders Clinical Impression: Cellulitis of left leg Instructions: ED Cellulitis Prescriptions: New cephalexin [cephalexin] 500 MG capsule 500 mg PO Q6 Qty: 40 RF: 0 naproxen 500 MG tablet 500 mg PO BID PRN Qty: 14 RF: 0 Primary Care Provider: Care Physician,No Primary Referrals: Leonarda Sal [NON-STAFF] - 1 Week if not improving Care Physician,No Primary [Primary Care Provider] - Disposition Disposition: Home, Self Care
--- NOTE | 2021-07-06 20:00 | CM.ED ---
SW Note Referral Source: Case Find Referral Reason: NO PCP SW met with patient. Patient reports no PCP. SW discussed the importance of securing a PCP for ongoing medical issues. Patient verbalized understanding. No issues or concerns voiced. SW remains available. Patient provided with Healthcare Provider Directory Plan: Healthcare Provider Directory Alba HARRELL
[2021-07-06] MEDS: Naproxen 250 MG Tablet 500 MG PO (20:01)
[2021-07-06] MEDS: Cephalexin 250 MG Capsule 500 MG PO (20:02)
[2021-07-06] MEDS: traMADol 50 MG Tablet PO (20:02)
[2021-07-06 20:11] VITALS: BP 144/73; PULSE 84; RESP 18; TEMP 36.6; O2SAT 98
[2021-07-06 20:12] VITALS: BP 144/73; PULSE 84; RESP 18; TEMP 36.6; O2SAT 98
== END 2021-07-06 22:15 | disposition home or self-care (01) ==
PROVIDERS: Emergency Provider Emergency Medicine; Visit Provider Emergency Medicine
DX: L03.116 Cellulitis of left lower limb (principal); F90.9 Attention-deficit hyperactivity disorder, unspecified type
CPT/HCPCS: 99283

== ENCOUNTER 2022-02-23 11:55 | Inpatient (IN) | payer MEDICAID, SELFPAY ==
[2022-02-23 11:56] VITALS: BP 169/97; PULSE 101; RESP 16; TEMP 36.1; O2SAT 100; BMI 32.5
--- NOTE | 2022-02-23 12:03 | EDS_ITS ---
HPI History of Present Illness Chief Complaint: Substance Abuse Narrative Narrative: 31-year-old male here for opiate detoxification. History of ADHD, hypertension, polysubstance abuse. The patient states he last used opiates approximately 7 AM prior to arrival. Also used methamphetamine at this time. Patient states he would like detox. Denies any physical complaints at this time. Old chart review reviewed: No recent visits for similar [facility] Medical History ADHD Chronic headaches Obesity Polysubstance abuse Tobacco use Home Medications Ashwagandha 1 tab PO/SL DAILY SUPPLEMENT 02/23/22 [History Last Taken 2 Days Ago ~02/21/22] zinc 1 tab PO/SL DAILY SUPPLEMENT 02/23/22 [History Last Taken 2 Days Ago ~02/21/22] Allergy/AdvReac Type Severity Reaction Status Date / Time No Known Allergies Allergy Verified 02/23/22 11:57 Family History Mother Hypertension Anxiety Father ETOH abuse Surgical History History of appendectomy History of tonsillectomy Social History household members: other details: Lives with her roommate who is currently clean w/ substance abuse hx. Smoking Status: Current every day smoker tobacco type: cigarettes Smoking packs per day: 0.5 Smoking cigarettes per day: 10.0 Years smoked: 16 Smoking pack- years: 8.00 alcohol intake: never substance use type: marijuana, crack/cocaine, amphetamines, opiates and other details: Meth smoked/IV, opiates orally, cocaine snorted. what type of physical activity do you participate in: weight training frequency: 3-4 times per week ROS ROS ED ROS Narrative Constitutional: Denies fever HEENT: Denies sore throat Neck: Denies neck pain Cardiovascular: Denies chest pain, syncope Respiratory: Denies shortness of breath GI: Denies nausea vomiting or abdominal pain : Denies changes in urinary habits Musculoskeletal: Denies muscle or joint pain Neurologic: Denies numbness weakness or loss of sensation Skin denies rash EXAM Physical Exam Narrative Exam Narrative: Nursing triage notes reviewed, Vital signs reviewed Constitutional: please see mdm HENT: MMM Eyes: Pupils equal round and reactive to light, Extraocular muscles intact Neck: No stridor, no JVD, full neck ROM Lungs: Clear to auscultation, No wheezing or rales. No increased work of breathing, no conversational dyspnea, no accessory muscle use, no nasal flaring. No respiratory distress noted Heart: Regular rate and rhythm, No murmurs, No rubs and No gallops, 2+ distal pulses (radial, femoral, posterior tibial) in all extremities Abdomen: Soft, there is no tenderness, rigidity, rebound or guarding, no obvious peritoneal signs, no palpable pulsatile abdominal masses, no auscultated abdominal bruit : No CVAT Extremities: No edema Neuro: No focal neurological deficits, cranial nerves II through XII intact, 5/5 strength in all extremities. Intact sensation to light touch in all extremities, 2+ reflexes bilateral patella dens. Normal gait. No ataxia. Skin: No rash or lesions noted Const Vital Signs: 02/23/22 11:56 02/23/22 14:10 Temperature 97.0 F L Temperature Source Temporal Pulse Rate 101 H Respiratory Rate 16 16 Blood Pressure 169/97 H Blood Pressure Mean 121 Pulse Ox 100 Oxygen Delivery Method Room Air MDM MDM MDM Narrative Medical decision making narrative: 31-year-old male here for opiate detoxification setting polysubstance abuse. The patient was hemodynamically stable, afebrile, nontoxic-appearing. Exam without murmurs, no midline back pain. Performed medical clearance evaluation for possible admission to detox. The patient was Medically Cleared. Discussed the case with hospitalist Dr. Freitas except the patient's case. Lab Data Attestation: I reviewed the patient's lab results. Lab results narrative: CBC without leukocytosis, severe anemia, no thrombocytopenia. BMP without evidence of significant electrolyte abnormalities, no anion gap, no acute kidney injury. Urine tox screen positive for opiates, amphetamines, MDMA, cocaine Blood alcohol level negative Labs: Laboratory Results - last 24 hr 02/23/22 02/23/22 02/23/22 12:20 12:30 12:30 WBC 10.5 RBC 5.46 Hgb 15.6 Hct 45.6 MCV 83.5 MCH 28.6 MCHC 34.2 RDW Std Deviation 43.3 RDW Coeff of Ariadne 14.3 Plt Count 363 MPV 9.1 Immature Gran % (Auto) 0.600 Neut % (Auto) 69.0 Lymph % (Auto) 20.4 Taney % (Auto) 7.5 Eos % (Auto) 1.6 Baso % (Auto) 0.9 Absolute Neuts (auto) 7.3 Absolute Lymphs (auto) 2.15 Nucleated RBC % 0 Sodium 141 Potassium 3.8 Chloride 108 H Carbon Dioxide 26.0 Anion Gap 7 BUN 22 H Creatinine 1.23 Estim Creat Clear Calc 104.00 Est GFR (MDRD) Af Amer 88 Est GFR (MDRD) Non-Af 73 BUN/Creatinine Ratio 17.9 Glucose 102 Calcium 9.6 Total Bilirubin Direct Bilirubin AST ALT Alkaline Phosphatase Total Protein Albumin Globulin Urine Opiates Screen POSITIVE H Urine Methadone Screen NEGATIVE Ur Barbiturates Screen NEGATIVE Ur Phencyclidine Scrn NEGATIVE Ur Amphetamines Screen POSITIVE H MDMA (Ecstasy) Screen POSITIVE H U Benzodiazepines Scrn NEGATIVE Urine Cocaine Screen POSITIVE H U Cannabinoids Screen NEGATIVE Ur Drug Screen Comment Ethyl Alcohol HIV 1&2 Antibody 02/23/22 02/23/22 02/23/22 12:30 12:30 12:30 WBC RBC Hgb Hct MCV MCH MCHC RDW Std Deviation RDW Coeff of Ariadne Plt Count MPV Immature Gran % (Auto) Neut % (Auto) Lymph % (Auto) Taney % (Auto) Eos % (Auto) Baso % (Auto) Absolute Neuts (auto) Absolute Lymphs (auto) Nucleated RBC % Sodium Potassium Chloride Carbon Dioxide Anion Gap BUN Creatinine Estim Creat Clear Calc Est GFR (MDRD) Af Amer Est GFR (MDRD) Non-Af BUN/Creatinine Ratio Glucose Calcium Total Bilirubin 0.30 Direct Bilirubin 0.10 AST 15 ALT 27 Alkaline Phosphatase 70 Total Protein 7.8 Albumin 3.9 Globulin 3.9 Urine Opiates Screen Urine Methadone Screen Ur Barbiturates Screen Ur Phencyclidine Scrn Ur Amphetamines Screen MDMA (Ecstasy) Screen U Benzodiazepines Scrn Urine Cocaine Screen U Cannabinoids Screen Ur Drug Screen Comment Ethyl Alcohol < 3.0 HIV 1&2 Antibody Non-Reactive EKG Initial EKG: Comments: EKG with sinus tachycardia, normal axis, normal intervals no STEMI Discharge Plan Dx/Rx/DC Orders Clinical Impression: Polysubstance abuse, Opioid use disorder Disposition Disposition: Acute Care Hospital [facility] Discharge Date/Time: 02/23/22 14:47
[2022-02-23 12:45] LABS: Absolute Lymphocyte Count 2.15 X10^3/uL (0.83-4.51); Absolute Neutrophil Count 7.3 X10^3/uL (2.0-7.7); Basophil% 0.9 % (0-1); Eosinophil# 0.17 X10^3/uL; Eosinophils% 1.6 % (0-5); Hematocrit 45.6 % (40-54); Hemoglobin 15.6 g/dL (13.0-16.5); Lymphocyte # 2.15 X10^3/ul (0.83-4.51); Lymphocyte % 20.4 % (19-41); Mean Corp Hgb Conc 34.2 g/dL (32-36); Mean Corpuscular Hgb 28.6 pg (27.0-32.0); Mean Corpuscular Volume 83.5 fL (80-94); Mean Platelet Vol. 9.1 fl (6.2-12.0); Monocyte# 0.79 X10^3/uL; Monocyte% 7.5 % (0-10); NRBC Flagged by Analyzer 0 % (0-5); Neutrophil # 7.26 X10^3/uL (2.7-7.7); Platelet Count 363 K/mm3 (150-450); RBC Distribution Width CV 14.3 % (11.6-14.6); RBC Distribution Width SD 43.3 fl (35.1-43.9); Red Blood Count 5.46 M/mm3 (4.6-6.2); White Blood Count 10.5 K/mm3 (4.4-11.0)
[2022-02-23 12:55] LABS: Amphetamine Urine VISTA POSITIVE (<1000 ng/mL); Barbiturate Urine VISTA NEGATIVE (< 200 ng/mL); Benzodiazepine Urine VISTA NEGATIVE (< 200 ng/mL); Cocaine Urine VISTA POSITIVE (< 300 ng/mL); Ecstacy Urine VISTA POSITIVE (< 500 ng/mL); Methadone Urine VISTA NEGATIVE (< 300 ng/mL); PCP Urine VISTA NEGATIVE (< 25 ng/mL); THC Urine VISTA NEGATIVE (< 50 ng/mL); Vista UDS pH Range 6
[2022-02-23 12:55] LABS: Anion Gap 7 (5-15); BUN 22 mg/dL (7-18); BUN/Creat Ratio 17.9 RATIO (10-20); Calcium,Total 9.6 mg/dL (8.5-10.1); Chloride 108 mmol/L (98-107); Creatinine, Serum 1.23 mg/dL (0.70-1.30); EST Glomerular Filtration Rate 73 mL/min (>60); Est Glom Filt Rate - Afr Amer 88 mL/min (>60); Glucose 102 mg/dL (74-106); Potassium 3.8 mmol/L (3.5-5.1); Sodium Level 141 mmol/L (136-145)
--- NOTE | 2022-02-23 12:56 | CM.ED ---
YOLANDA Note Referral Reason: [facility] Referral Source: Case Find SW met with patient to discuss the [facility] program. Patient reports they are detoxing from opiates, meth and cocaine. He last used opiates and meth 4 hours ago . Patient is linked with [facility] for Aftercare but quit going. Patient was advised that the [facility] program includes no outside food or visitors, no phone access and all personal items are secured. SW called Treatment Navigator and updated her regarding patient?s admission to [facility]. Plan: CARINA HARRELL
[2022-02-23 13:29] LABS: Alcohol, Blood (Medical)-Serum < 3.0 mg/dL
[2022-02-23 14:10] VITALS: RESP 16
--- NOTE | 2022-02-23 14:18 | HP.PCM.HOS_ITS ---
HPI - General General Date of Admission: 02/23/22 Date of Service: 02/23/22 Chief Complaint: Opiate Withdrawal HPI Narrative The patient is a 31 y/o M w/ PMHx: ADHD, Chronic headaches, Obesity, Tobacco use, notable Polysubstance abuse (methamphetamine usually injected or smoked, opiates normally snorted or eaten, cocaine usually snorted) who presents to the [facility] ED on 02/23/22 w/ noted acute opiate withdrawal onset starting just prior to ED presentation following last dose of opiates earlier in the AM at ~ 7 am with abdominal cramping, mild body aches and pains, rhinorrhea, fatigue, restless leg as well as persistent yawning. Patient does live with a roommate who has prior substance abuse history however this person is currently cleaned and the risk of him in the situation was discussed at length. Patient interested in attaining c lean status. Work-up in the ED included T 97, heart rate 101, BP 169/97, respiratory rate 16, #on room air, CBC with WBC 10.5, hemoglobin 15.6, platelets 363 without shift, BMP with chloride 108, BUN/creat 22/1.23, urine drug screen with positive opiates, amphetamine, MDMA, cocaine, ethyl alcohol less than 3, rapid COVID antigen negative. [facility] Medical History ADHD Chronic headaches Obesity Polysubstance abuse Tobacco use Home Medications Ashwagandha 1 tab PO/SL DAILY SUPPLEMENT 02/23/22 [History Last Taken 2 Days Ago ~02/21/22] zinc 1 tab PO/SL DAILY SUPPLEMENT 02/23/22 [History Last Taken 2 Days Ago ~02/21/22] Allergy/AdvReac Type Severity Reaction Status Date / Time No Known Allergies Allergy Verified 02/23/22 11:57 Family History (Updated 02/23/22 @ 14:[address] Rafia Freitas MD) Mother Hypertension Anxiety Father ETOH abuse Surgical History History of appendectomy History of tonsillectomy Social History (Updated 02/23/22 @ 14:[address] Rafia Freitas MD) household members: other details: Lives with her roommate who is currently clean w/ substance abuse hx. Smoking Status: Current every day smoker tobacco type: cigarettes Smoking packs per day: 0.5 Smoking cigarettes per day: 10.0 Years smoked: 16 Smoking pack- years: 8.00 alcohol intake: never substance use type: marijuana, crack/cocaine, amphetamines, opiates and other details: Meth smoked/IV, opiates orally, cocaine snorted. what type of physical activity do you participate in: weight training frequency: 3-4 times per week ROS ROS Narrative Admission Review of Systems: CONSTITUTIONAL: No weight loss, fever, chills, + weakness or fatigue. HEENT: Eyes: No visual loss, blurred vision, double vision or yellow sclerae. Ears, Nose, Throat: No hearing loss, sneezing, congestion, runny nose or sore throat. SKIN: No rash or itching, lesions, wounds. CARDIOVASCULAR: No chest pain, chest pressure or chest discomfort, palpitations, edema, orthopnea, syncopal events. RESPIRATORY: No shortness of breath, cough or sputum, wheezing, hemoptysis. GASTROINTESTINAL: + Abdominal cramping/discomfort. No anorexia, nausea, vomiting or diarrhea, abdominal pain, melena, BRBPR. GENITOURINARY: No dysuria, frequency, urgency or retention. NEUROLOGICAL: + Restless legs. No headache, dizziness, syncope, paralysis, ataxia, numbness or tingling in the extremities, focal weakness, change in bowel or bladder control, seizure. MUSCULOSKELETAL: + muscle, back pain, joint pain or stiffness. HEMATOLOGIC: No anemia, bleeding or bruising. LYMPHATICS: No enlarged nodes. No history of splenectomy. PSYCHIATRIC: + history of depression or anxiety. ENDOCRINOLOGIC: No reports of sweating, cold or heat intolerance. No polyuria or polydipsia. ALLERGIES: No history of asthma, hives, eczema or rhinitis. Vital Signs Vital Signs Vital Signs: 02/23/22 11:56 02/23/22 14:10 Temperature 97.0 F L Temperature Source Temporal Pulse Rate 101 H Respiratory Rate 16 16 Blood Pressure 169/97 H Blood Pressure Mean 121 Pulse Ox 100 Oxygen Delivery Method Room Air Weight Weight: 260 lb Body Mass Index (BMI) 32.5 Physical Exam Narrative Physical Examination: General: Awake, alert, oriented x 3 and cooperative, seated upright in ED bed, frequently yawning, fatigued and restless at the same time. Skin: Normal color, normal turgor, no icterus, no cyanosis except occasional staged ecchymoses and injection junior with no obvious evidence of cellulitic findings. HEENT: AT/NC, EOMI, PERRLA, mildly dry MM, no carotid bruits or JVD noted. Lungs: Mildly diminished, greater bases, appropriate effort, no rales, ronchi or wheezing. Heart: Mildly tachycardic with regular rhythm; no gallop, rub audible. Abdomen: Soft, generalized discomfort with palpation, no obvious distention, mildly hyperactive bowel sounds, no obvious HSM. Extremities: No cyanosis, clubbing, or edema, see skin. Neurological: Patient awake, alert, oriented as noted, cognitive function intact; pupils equally reactive to light and accommodation, cranial nerves II- XII grossly normal, moving all 4 extremities, no focal deficits, strength mildly to moderately low decrease given acute presentation, restless, frequently yawning with evidence of withdrawal Psychiatric: Affect appears mildly restless, frequently yawning, evidence of wi thdrawal, no acute evidence of depressive or anxiety feelings but from discussion suspect underlying history as well as noted history of ADHD. Results Lab / Micro Data Result Diagrams: 02/23/22 12:30 02/23/22 12:30 Labs: Laboratory Results - last 24 hr 02/23/22 12:20: Urine Opiates Screen POSITIVE H, Urine Methadone Screen NEGATIVE, Ur Barbiturates Screen NEGATIVE, Ur Phencyclidine Scrn NEGATIVE, Ur Amphetamines Screen POSITIVE H, MDMA (Ecstasy) Screen POSITIVE H, U Benzodiazepines Scrn NEGATIVE, Urine Cocaine Screen POSITIVE H, U Cannabinoids Screen NEGATIVE, Ur Drug Screen Comment 02/23/22 12:30: WBC 10.5, RBC 5.46, Hgb 15.6, Hct 45.6, MCV 83.5, MCH 28.6, MCHC 34.2, RDW Std Deviation 43.3, RDW Coeff of [place]ad[place] 14.3, Plt Count 363, MPV 9.1, Immature Gran % (Auto) 0.600, Neut % (Auto) 69.0, Lymph % (Auto) 20.4, [place] % (Auto) 7.5, Eos % (Auto) 1.6, Baso % (Auto) 0.9, Absolute Neuts (auto) 7.3, Absolute Lymphs (auto) 2.15, Nucleated RBC % 0 02/23/22 12:30: Sodium 141, Potassium 3.8, Chloride 108 H, Carbon Dioxide 26.0, Anion Gap 7, BUN 22 H, Creatinine 1.23, Estim Creat Clear Calc 104.00, Est GFR (MDRD) Af Amer 88, Est GFR (MDRD) Non-Af 73, BUN/Creatinine Ratio 17.9, Glucose 102, Calcium 9.6 02/23/22 12:30: Ethyl Alcohol < 3.0 Micro: Microbiology 02/23/22 12:20 Nasal Secretion SARS-CoV-2 Antigen (Rapid) - Final Assessment & Plan Assessment/Plan (1) Opiate withdrawal: PLAN: Plan The patient is a 31 y/o M w/ PMHx: ADHD, Chronic headaches, Obesity, Tobacco use, notable Polysubstance abuse (methamphetamine usually injected or smoked, opiates normally snorted or eaten, cocaine usually snorted) who presents to the [facility] ED on 02/23/22 w/ noted acute opiate withdrawal onset. #1. Acute Opiate Withdrawal: Will admit to [facility], routine labs including CBC, BMP, urine for drug screen obtained in the ED, will add hepatic profile, will initiate and continue on protocol with tapering course of Subutex, as needed tylenol, ibuprofen, bowel regimen, gabapentin, Bentyl, Vistaril, methocarbamol, clonidine, PRN nightly trazodone for insomnia, IV fluids, IV antiemetics. Once patient clinically improved and completion of taper nearing will plan consultation with case management for transition to next level of rehabilitation care. #2. Polysubstance Abuse, IVDA: Given notable drug abuse including IVDA as discu ssed with patient will obtain HIV, hepatitis panel to be cautious. Patient currently not candidate for hep C treatment currently as needs to be clean, sober x 6 months, documented attendance NA or AA meetings, counseling and ongoing negative drug screens. Once appropriate GI, ID to initiate. #3. Elevated BP without hypertensive diagnosis: Admission ED presentation blood pressure notably elevated, likely secondary to acute presentation, continue to trend and add regimen if appropriate, as needed IV hydralazine interim. #4. Tobacco Abuse: Encouraged cessation, inpatient consultation per RT, NR if desired. #5. ADHD/anxiety and depression suspected: Encourage continued close outpatient follow-up, case management consult as well as 180 would benefit from counseling as likely contributing to substance abuse. #6. Obesity: Weight loss and lifestyle changes encouraged. #7. DVT prophylaxis: Low risk, encourage ambulation. Charges/Coding Visit Charges Inpatient E&M: 78915 Init Hosp L3
[2022-02-23 14:45] LABS: AST(SGOT) 15 U/L (15-37); Alanine Aminotransfer ALT/SGPT 27 U/L (16-61); Albumin, Serum 3.9 g/dL (3.2-5.0); Alkaline Phosphatase 70 U/L (45-117); Globulin 3.9 g/dL (2.2-4.2); Protein, Total 7.8 g/dL (6.4-8.2)
[2022-02-23 14:46] VITALS: BP 169/97; PULSE 101; RESP 16; TEMP 36.1; O2SAT 100
--- NOTE | 2022-02-23 14:48 | NURSING ---
309 WHITE ACUTE OPIATE WITHDRAWAL
[2022-02-23 15:13] VITALS: BP 158/108; PULSE 82; RESP 16; TEMP 37.3; O2SAT 99
[2022-02-23 15:13] LABS: HIV - WCH Non-Reactive (Nonreactive)
[2022-02-23] MEDS: Methocarbamol 750 MG Tablet 1500 MG PO (15:33)
[2022-02-23] MEDS: Gabapentin 300 MG Capsule PO (15:33)
[2022-02-23 16:32] VITALS: BMI 31.8
[2022-02-23] MEDS: hydrOXYzine PAM 25 MG Capsule 50 MG PO (16:46)
--- NOTE | 2022-02-23 17:32 | NURSING ---
PT REFUSING IV START AT THIS TIME.
[2022-02-23] MEDS: traZODone 100 MG Tablet PO (20:56)
[2022-02-23 20:58] VITALS: BP 124/84; PULSE 75; RESP 16; TEMP 36.8; O2SAT 98
[2022-02-24 04:00] VITALS: BP 130/84; PULSE 75; RESP 18; TEMP 36.6; O2SAT 100
[2022-02-24] MEDS: Ibuprofen 600 MG Tablet PO (04:03)
[2022-02-24] MEDS: Methocarbamol 750 MG Tablet 1500 MG PO (04:04)
[2022-02-24] MEDS: hydrOXYzine PAM 25 MG Capsule 50 MG PO ×2 (04:11→20:19)
[2022-02-24] MEDS: Ondansetron 8 MG Tablet PO ×2 (04:11→14:21)
[2022-02-24] MEDS: Buprenorphine HCl 2 MG TAB.SUBL 4 MG SL (04:11)
[2022-02-24 07:15] VITALS: O2SAT 94
--- NOTE | 2022-02-24 07:52 | PN.HOSP_ITS ---
Subjective Subjective DOS: 02/24/2022 CC: Nauseated Reports feeling nauseated and feels like the Subutex dose was too much for him. Was offered nausea medicine another medicine as needed's but has refused. Denies chest pain or shortness of breath. Just feels generally generally unwell. Agreeable to continue taper with lower dose Objective Data Objective Data Vital Signs: Vital Signs Temp Pulse Resp BP Pulse Ox O2 Del Method 97.9 F 75 18 130/84 H 94 Room Air 02/24/22 04:00 02/24/22 04:00 02/24/22 04:00 02/24/22 04:00 02/24/22 07:15 02/24/22 07:15 Oxygen Delivery Method Room Air Weight: 116 kg Body Mass Index (BMI) 31.8 Lab / Micro Data Result Diagrams: 02/23/22 12:30 02/23/22 12:30 Labs: Laboratory Results - last 24 hr 02/23/22 12:20: Urine Opiates Screen POSITIVE H, Urine Methadone Screen NEGATIVE, Ur Barbiturates Screen NEGATIVE, Ur Phencyclidine Scrn NEGATIVE, Ur Amphetamines Screen POSITIVE H, MDMA (Ecstasy) Screen POSITIVE H, U Benzodiazepines Scrn NEGATIVE, Urine Cocaine Screen POSITIVE H, U Cannabinoids Screen NEGATIVE, Ur Drug Screen Comment 02/23/22 12:30: WBC 10.5, RBC 5.46, Hgb 15.6, Hct 45.6, MCV 83.5, MCH 28.6, MCHC 34.2, RDW Std Deviation 43.3, RDW Coeff of Ariadne 14.3, Plt Count 363, MPV 9.1, Immature Gran % (Auto) 0.600, Neut % (Auto) 69.0, Lymph % (Auto) 20.4, [place] % (Auto) 7.5, Eos % (Auto) 1.6, Baso % (Auto) 0.9, Absolute Neuts (auto) 7.3, Absolute Lymphs (auto) 2.15, Nucleated RBC % 0 02/23/22 12:30: Sodium 141, Potassium 3.8, Chloride 108 H, Carbon Dioxide 26.0, Anion Gap 7, BUN 22 H, Creatinine 1.23, Estim Creat Clear Calc 104.00, Est GFR (MDRD) Af Amer 88, Est GFR (MDRD) Non-Af 73, BUN/Creatinine Ratio 17.9, Glucose 102, Calcium 9.6 02/23/22 12:30: Ethyl Alcohol < 3.0 02/23/22 12:30: Total Bilirubin 0.30, Direct Bilirubin 0.10, AST 15, ALT 27, Alkaline Phosphatase 70, Total Protein 7.8, Albumin 3.9, Globulin 3.9 02/23/22 12:30: HIV 1&2 Antibody Non-Reactive Micro: Microbiology 02/23/22 12:20 Nasal Secretion SARS-CoV-2 Antigen (Rapid) - Final Physical Exam Const alert Constitutional Narrative: Oriented, appears comfortable HEENT normocephalic and head/scalp atraumatic Eyes Eyes Narrative: EOM grossly intact, anicteric Neck supple Resp normal respiratory effort and clear to auscultation bilaterally Cardio regular rate and regular rhythm GI soft to palpation, non-tender and non-distended Extremity Extremity Narrative: No edema appreciated Neuro moves all extremities Neuro Narrative: No overt focal deficits appreciated Psych Psych Narrative: Cooperative Assessment & Plan Assessment/Plan (1) Opiate withdrawal: PLAN: Plan Patient is a 31-year-old male with a history of ADHD, chronic headaches, ob esity, tobacco use and notable polysubstance abuse with methamphetamine usually injected smokes, opiates usually snorted or eaten, cocaine usually snorted, who presents to [facility] ED on 02/23/2022 with acute opiate withdrawal starting just prior to ED presentation following last dose of opiates about 7 AM. He was admitted to the right program. #Acute opiate withdrawal - Subutex taper initiated?felt that it was too at 4 mg, have decreased to 2 mg - As needed Tylenol, ibuprofen, bowel regimen, gabapentin, Bentyl, Vistaril, methocarbamol, clonidine - As needed trazodone nightly - As needed antiemetics -Once patient begins to clinically improve will discuss further discharge planning #Polysubstance abuse and IV drug abuse ? UDS positive for opiates, amphetamines, MDMA, cocaine Hepatitis panel pending HIV nonreactive #Tobacco abuse Encourage cessation #DVT ppx: Low risk, ambulatory April Coburn MD Charges/Coding Visit Charges Inpatient E&M: 00286 Subs Hosp L2
[2022-02-24 08:00] VITALS: BP 122/80; PULSE 70; RESP 18; TEMP 36.6; O2SAT 98
[2022-02-24 09:01] LABS: Hepatitis B Surface Antibody Non-Reactive; Hepatitis B Surface Antigen Non-Reactive (Nonreactive); Hepatitis C Antibody Non-Reactive (Nonreactive)
--- NOTE | 2022-02-24 10:00 | NURSING ---
Cristi from addiction medicine here to see pt, Dr duke has also spoken w/ pt and agreeable to adjust his buprenorphine dose
--- NOTE | 2022-02-24 11:07 | ADDICTION ---
This appeals writer met with PT to conduct ASAM, MSE, AUDIT, DUDIT assessments and to plan for d/c. PT A+Ox4 and participated actively. All assessments completed, and placed in PT's chart. PT plans to f/u with individual counselor at [facility] for outpatient treatment services. His appointment is scheduled for 03/03 @2:00pm. PT did not indicate a need for transportation post d/c from [facility].
[2022-02-24 12:00] VITALS: BP 126/78; PULSE 86; RESP 18; TEMP 36.6; O2SAT 98
[2022-02-24] MEDS: Buprenorphine HCl 2 MG TAB.SUBL SL (13:02)
[2022-02-24] MEDS: Senna Tablet 2 TABLET PO (13:05)
--- NOTE | 2022-02-24 13:26 | NURSING ---
pt hesitant to take next dose of buprenorphine, encouraged to take now, aslready 45 min later than scheduled, pt place under tongue, then went into restroom and shut the door, denies spitting pill out-pt is to call when he gets out of shower for nicotine patch
--- NOTE | 2022-02-24 13:47 | CHAPLAIN ---
Type of Pastoral Visit _x__ Initial Visit ___ Follow-up Visit ___ On-call Visit ___ General Patient Visit ___ Spiritual Assessment ___ Family Conference ___ Bereavement ___ Rapid Response ___ Code Blue ___ Other (describe below) Pastoral Care Referral From _x__ Patient ___ Family ___ Nurse ___ Physician ___ Loader Operator/Ground Leader ___ Safety Professional ___ Other (describe below) Sacrament/Intervention _x__ Active listening ___ Anointing ___ Advent ___ Bereavement ___ Communion ___ Sheeba exploration ___ _x__ Life review _x__ Prayer ___ Reconciliation ___ Sacrament of Sick _x__ Supportive presence ___ Wedding ___ Other (describe below) Pastoral Comments patient identified himself as a Yazidism that got lots of help from my equipment records supervisor, baptist, and God in my custodial time and recovery; pt expresses shame at relapse in November after months of clean living, having a job, and getting my own place to live; pt lost his job and had feelings of loneliness; pt states that he feels isolated from God at this time and wants to renew his spiritual connection and get back to recovery; pt states he would like another visit tomorrow as right now I am feeling so tired; pt seeks prayer and presence in support of his recovery
[2022-02-24 20:26] VITALS: BP 121/76; PULSE 76; RESP 18; TEMP 36.6; O2SAT 99
[2022-02-24] MEDS: traZODone 100 MG Tablet PO (21:25)
[2022-02-25 03:30] VITALS: BP 129/86; PULSE 80; RESP 16; TEMP 36.7; O2SAT 98
--- NOTE | 2022-02-25 07:45 | PCM.PN.HOSP ---
Subjective Subjective DOS: 02/25/2022 CC: Follow-up opiate withdrawal Reports feeling better on the lower dose of the Subutex. Hungry for breakfast, denies any other complaints this morning Objective Data Objective Data Vital Signs: Vital Signs Temp Pulse Resp BP Pulse Ox O2 Del Method 98.0 F 80 16 129/86 H 98 Room Air 02/25/22 03:30 02/25/22 03:30 02/25/22 03:30 02/25/22 03:30 02/25/22 03:30 02/25/22 03:30 Oxygen Delivery Method Room Air Weight: 116 kg Body Mass Index (BMI) 31.8 Intake & Output: Intake and Output for Last 24 Hours 02/23/22 02/24/22 02/25/22 23:59 23:59 23:59 Intake Total 600 / 600 Balance 600 / 600 Lab / Micro Data Result Diagrams: 02/23/22 12:30 02/23/22 12:30 Labs: Laboratory Results - last 24 hr 02/23/22 12:30: Hep Bs Antigen Non-Reactive, Hep Bs Antibody Non-Reactive, Hepatitis C Antibody Non-Reactive Micro: Microbiology 02/23/22 12:20 Nasal Secretion SARS-CoV-2 Antigen (Rapid) - Final Physical Exam Const alert Constitutional Narrative: Oriented, appears comfortable HEENT normocephalic and head/scalp atraumatic Eyes Eyes Narrative: EOM grossly intact, anicteric Neck supple Resp normal respiratory effort and clear to auscultation bilaterally Cardio regular rate and regular rhythm GI soft to palpation, non-tender and non-distended Extremity Extremity Narrative: No edema appreciated Neuro moves all extremities Neuro Narrative: No overt focal deficits appreciated Psych Psych Narrative: Cooperative Assessment & Plan Assessment/Plan (1) Opiate withdrawal: PLAN: Plan Patient is a 31-year-old male with a history of ADHD, chronic headaches, obesity, tobacco use and notable polysubstance abuse with methamphetamine usually injected smokes, opiates usually snorted or eaten, cocaine usually snorted, who presents to [facility] ED on 02/23/2022 with acute opiate withdrawal starting just prior to ED presentation following last dose of opiates about 7 AM. He was admitted to the right program. #Acute opiate withdrawal - Subutex taper initiated?felt that it was too at 4 mg, have decreased to 2 mg - As needed Tylenol, ibuprofen, bowel regimen, gabapentin, Bentyl, Vistaril, methocarbamol, clonidine - As needed trazodone nightly - As needed antiemetics -Once patient begins to clinically improve will discuss further discharge planning 02/25/2022: Doing better with lower dose of Subutex, continue taper, will follow up with 180 as an outpatient. Has further taper today, then 1 dose of 2 mg tomorrow morning and can likely discharge after that if stable #Polysubstance abuse and IV drug abuse ? UDS positive for opiates, amphetamines, MDMA, cocaine Hepatitis panel nonreactive HIV nonreactive #Tobacco abuse Encourage cessation #DVT ppx: Low risk, ambulatory April Coburn MD Charges/Coding Visit Charges Inpatient E&M: 08771 Subs Hosp L2
[2022-02-25 08:48] VITALS: BP 135/80; PULSE 81; RESP 16; TEMP 36.7; O2SAT 100
--- NOTE | 2022-02-25 11:11 | DCINST_ITS ---
Discharge Instructions Diet Discharge Diet: No restrictions Activity Discharge Activity: Return to Normal Activity Follow Up Care Test Results: Test results from this visit will be discussed in further detail at your follow- up appointment, if applicable. Discharge Plan Admission Admit Date/Time: 02/23/22 14:20 Primary Reason for Your Visit: Opioid withdrawal Attending Provider: April Coburn Primary Care Provider: Care Physician,No Primary Consulting Providers: Rafia Freitas Instructions Patient Instructions: ED Opioid Withdrawal Additional Instructions / Restrictions: ? Please follow-up with the 1 ED program upon discharge, an appointment was made for you on March 03, it will be very important for you to make this appointment. -Please call your primary care provider's office upon discharge to schedule a hospital follow up within 1 week. -For any concerning signs or symptoms please call 911 or proceed to the nearest emergency department Discharge Orders/Prescriptions Prescriptions: Continued Ashwagandha 1 tab PO/SL DAILY zinc 1 tab PO/SL DAILY Referrals / Follow Up: Care Physician,No Primary [Primary Care Provider] - Disposition Disposition (needs filled in before D/C Order can be placed): Home, Self Care
--- NOTE | 2022-02-25 11:13 | PCM.DC.SUM ---
Providers Date of Admission: 02/23/22 Date of Discharge: 02/25/22 Primary Care Physician: No Primary Care Phys Reason For Visit: ACUTE OPIATE WITHDRAWAL Diagnosis Discharge Diagnosis (1) Opiate withdrawal: Status: Acute Code(s): F11.93 - Opioid use, unspecified with withdrawal Plan #Acute opiate withdrawal #Polysubstance abuse and IV drug abuse #Tobacco abuse Medications at Discharge Home Medications Ashwagandha 1 tab PO/SL DAILY SUPPLEMENT 02/23/22 zinc 1 tab PO/SL DAILY SUPPLEMENT 02/23/22 Hospital Course Summary of Care Provided Minutes Spent on Discharge: 32 Hospital Course: Patient is a 31-year-old male with a history of ADHD, chronic headaches, obesity, tobacco use and notable polysubstance abuse with methamphetamine usually injected smokes, opiates usually snorted or eaten, cocaine usually snorted, who presents to [facility] ED on 02/23/2022 with acute opiate withdrawal starting just prior to ED presentation following last dose of opiates about 7 AM. He was admitted to the [facility] program. He was started on Subutex as well as medications to assist with detox symptoms. He felt the Subutex made him sick, attempted to decrease the dose but he was refusing further doses. He was resting comfortably on the day of discharge 02/25/2022 and given that he is not taking any inpatient medications for detox, reasonable to discharge with outpatient follow-up. Already has an appointment with the [facility] program on March 03 which he is aware of. Physical Exam Const alert Constitutional Narrative: Oriented, appears comfortable HEENT normocephalic and head/scalp atraumatic Eyes Eyes Narrative: EOM grossly intact, anicteric Neck supple Resp normal respiratory effort and clear to auscultation bilaterally Cardio regular rate and regular rhythm GI soft to palpation, non-tender and non-distended Extremity Extremity Narrative: No edema appreciated Neuro moves all extremities Neuro Narrative: No overt focal deficits appreciated Psych Psych Narrative: Cooperative Weight / BMI Weight Weight: 116 kg Body Mass Index (BMI) 31.8 ABG / Lab / Microbiology Data Result Diagrams: 02/23/22 12:30 02/23/22 12:30 Microbiology: Microbiology 02/23/22 12:20 Nasal Secretion SARS-CoV-2 Antigen (Rapid) - Final D/C Instructions Discharge Diet: No restrictions Meaningful Use Info Meaningful Use Diagnoses (Choose all that apply): None applicable Discharge Plan Admission Admit Date/Time: 02/23/22 14:20 Primary Reason for Your Visit: Opioid withdrawal Attending Provider: April Coburn Primary Care Provider: Care Physician,No Primary Consulting Providers: Rafia Freitas Instructions Patient Instructions: ED Opioid Withdrawal Additional Instructions / Restrictions: ? Please follow-up with the 1 ED program upon discharge, an appointment was made for you on March 03, it will be very important for you to make this appointment. -Please call your primary care provider's office upon discharge to schedule a hospital follow up within 1 week. -For any concerning signs or symptoms please call 911 or proceed to the nearest emergency department Discharge Orders/Prescriptions Prescriptions: Continued Ashwagandha 1 tab PO/SL DAILY zinc 1 tab PO/SL DAILY Referrals / Follow Up: Care Physician,No Primary [Primary Care Provider] - Disposition Disposition (needs filled in before D/C Order can be placed): Home, Self Care Charges/Coding Visit Charges Inpatient E&M: 17590 Subs Hosp L2
[2022-02-25 14:41] VITALS: BP 139/86; PULSE 101; RESP 16; TEMP 36.5; O2SAT 97
[2022-02-25] MEDS: Acetaminophen 325 MG Tablet 650 MG PO (14:51)
== END 2022-02-25 15:15 | disposition home or self-care (01) | DRG 773 ==
LOC: ED 12:39 → MS3 14:40
PROVIDERS: Admitting Provider Family Medicine; Emergency Provider Emergency Medicine; Visit Provider Internal Medicine
DX: F11.23 Opioid dependence with withdrawal (principal); E66.9 Obesity, unspecified; F15.10 Other stimulant abuse, uncomplicated; F12.90 Cannabis use, unspecified, uncomplicated; I10 Essential (primary) hypertension; F17.210 Nicotine dependence, cigarettes, uncomplicated; F90.9 Attention-deficit hyperactivity disorder, unspecified type; F32.A Depression, unspecified; Z68.31 Body mass index [BMI] 31.0-31.9, adult
CPT/HCPCS: 80048; 80076; 80307; 82077; 85025; 86703; 86706; 86803; 87340; 87811; 93005; 99283; 99406